=== PATIENT | male | born 2000 | race Caucasian/White ===

== ENCOUNTER 2022-04-07 19:22 | Emergency (ER) | payer BC, SELFPAY ==
--- NOTE | ~2022-04-07 | XR_ITS ---
EXAMINATION: XR chest 2V Exam Date/Time: 04/07/2022 20:30 MANUFACTURING BUSINESS ANALYST HISTORY: Chest pressure, SOB Comparison: None available. RESULT: Lines, tubes, and devices: None. Lungs and pleura: Clear. Cardiomediastinal silhouette: Normal. Other: No acute osseous or upper abdominal finding. IMPRESSION: No acute cardiopulmonary process. Reviewed, dictated and finalized at location K. FACTURING BUSINESS ANALYST
--- NOTE | ~2022-04-07 | CT_ITS ---
EXAMINATION: CTA chest PE protocol DATE: 04/08/2022 07:11 INDICATION: Chest pain and tachycardia TECHNIQUE: Computed tomography (CT) pulmonary angiogram of the chest was performed with 100 mL Omnipa que-350 intravenous contrast. Additional 3D reconstructions utilizing coronal maximum intensity proje ction (MIP) were performed. Automated exposure control and iterative reconstruction technique were em ployed. The dose-length product was 354.61 mGy-cm. COMPARISON: None FINDINGS: Excellent contrast opacification of the pulmonary arteries. There is mild streak artifact from dense contrast in the superior vena cava and right atrium. No significant motion artifact yielding diagnost ic quality study which demonstrates no pulmonary embolism. No pneumonia, pulmonary edema or pleural e ffusion. Heart size is normal. No pericardial effusion. Thoracic aorta is normal in caliber with no d issection. No pathologically enlarged thoracic lymphadenopathy. Diffuse hepatic steatosis. Mild to mo derate thoracic spondylosis with chronic appearing mild anterior wedging at T5-T8. IMPRESSION: 1. No pulmonary embolism or other acute cardiopulmonary disease. 2. Diffuse hepatic steatosis. Reviewed, dictated and finalized at location A. MATERIALS HANDLING PLANT OPERATOR
[2022-04-07 20:03] VITALS: BP 136/86; PULSE 94; RESP 14; TEMP 36.8; O2SAT 98
--- NOTE | 2022-04-07 20:08 | ECG_ITS ---
Measurements Intervals [place] Rate: 84 P: 41 ID: 140 QRS: 21 QRSD: 106 T: -76 QT: 351 QTc: 416 Interpretive Statements SINUS RHYTHM WITH MARKED SINUS ARRHYTHMIA T-WAVE ABNORMALITY INFERIOR AND INFEROLATERAL LEADS, CONSIDER ISCHEMIA ABNORMAL ECG NO PREVIOUS ECG AVAILABLE FOR COMPARISON Electronically Signed On 04-08-2022 15:44:41 [employer] [employer] by Walter Forte M.D.
[2022-04-07 20:27] LABS: Basophils Percent Auto 0.4 % (0.2-1.2); Eosinophils Percent Auto 0.7 % (0-4.4); Hematocrit 47.1 % (42.0-52.0); Hemoglobin 15.8 g/dL (14.0-18.0); Immature Granulocyte Absolute 0.02 K/mm3 (0.00-0.031); Immature Granulocyte Percent A 0.4 % (0-0.5); Lymphocytes Absolute Auto 1.66 K/mm3 (0.9-3.2); Lymphocytes Percent Auto 29.7 % (18.3-44.2); Mean Corpuscular HGB Conc 33.5 g/dl (32-36); Mean Corpuscular Hemoglobin 27.9 pg (26-34); Mean Corpuscular Volume 83.1 fl (80-100); Mean Platelet Volume 10.2 fl (7.4-10.4); Monocytes Absolute Auto 0.5 K/mm3 (0.1-0.6); Monocytes Percent Auto 9.1 % (2.6-8.5); Neutrophils Absolute Auto 3.3 K/mm3 (1.3-6.7); Neutrophils Percent Auto 59.7 % (45.5-73.1); Platelet Count Result 298 k/mm3 (150-375); Red Blood Count 5.67 M/mm3 (4.6-6.20); Red Cell Distribution Width 12.4 % (11.5-14.5); White Blood Count 5.6 K/mm3 (4.5-10.0)
[2022-04-07 20:37] LABS: Alanine Aminotransferase 91 U/L (6-50); Albumin Level 4.9 g/dL (3.5-5.1); Alkaline Phosphatase 74 U/L (38-126); Anion Gap 10 mmol/L (8-16); Aspartate Amino Transferase 50 U/L (17-59); Bilirubin,Total 1.7 mg/dL (0.2-1.3); Blood Urea Nitrogen 5 mg/dL (9-20); Calcium 9.3 mg/dL (8.4-10.2); Carbon Dioxide 28 mmol/L (22-30); Chloride 104 mmol/L (98-107); Estimated CRCL calculation 138 ml/min; Estimated Glomerular Filt Rate > 60; Glucose 94 mg/dL (65-110); Lipase 59 U/L (23-300); Potassium 3.8 mmol/L (3.4-5.0); Sodium 142 mmol/L (137-145)
[2022-04-07 20:38] LABS: Partial Thromboplastin Time 30.4 SECONDS (22.3-36.8); Prothrombin Time 12.4 Seconds (11.1-14.7)
[2022-04-07 20:48] LABS: Troponin I < 0.012 ng/mL (0.000-0.034)
[2022-04-07 21:59] VITALS: BP 141/93; PULSE 85; RESP 18; O2SAT 99
[2022-04-08 00:33] LABS: Troponin I < 0.012 ng/mL (0.000-0.034)
--- NOTE | 2022-04-08 05:37 | ECG_ITS ---
Measurements Intervals [place] Rate: 97 P: 15 DE: 140 QRS: 6 QRSD: 87 T: 228 QT: 346 QTc: 441 Interpretive Statements SINUS RHYTHM BASELINE ARTIFACT MODERATE T-WAVE ABNORMALITY, CONSIDER ANTEROLATERAL ISCHEMIA MODERATE T-WAVE ABNORMALITY, CONSIDER INFERIOR ISCHEMIA ABNORMAL ECG COMPARED TO ECG 04/07/2022 20:13:35 NO SIGNIFICANT CHANGES Electronically Signed On 04-08-2022 15:48:34 ZOO DIRECTOR by Walter Forte M.D.
--- NOTE | 2022-04-08 07:56 | ED.CHESTPAIN ---
HPI - Chest Pain General Chief Complaint: Chest Pain <Jac Mora MD - Last Filed: 04/08/22 08:08> Stated Complaint: chest discomfort <Jac Mora MD - Last Filed: 04/08/22 08:08> Time Seen by Provider: 04/08/22 05:00 <Jac Mora MD - Last Filed: 04/08/22 08:08> History of Present Illness HPI narrative: 21-year-old male present emergency department for evaluation of intermittent left-sided chest wall pain. Patient states he did have molar extraction on Saturday. Patient states that he has been having intermittent left-sided chest wall pain and does have exertional shortness of breath when having the pain. Patient denies any prior cardiac history. Patient denies a personal history of PE although he does have a family history of PE. Patient states that the pain was worsened when laying flat. During examination patient was pain-free and had no pain when lying flat. At this time patient denied any chest pain or shortness of breath. Patient denies any lower extremity swelling or tenderness. Patient denies any other significant past medical history. <Jac Mora MD - Last Filed: 04/08/22 08:08> Related Data Home Medications: Home Medications Medication Instructions Recorded Confirmed cetirizine 10 mg capsule (Zyrtec) 10 mg PO DAILY PRN 02/24/21 09/08/21 <Jac Mora MD - Last Filed: 04/08/22 08:08> Allergies/Adverse Reactions: Allergies Allergy/AdvReac Type Severity Reaction Status Date / Time lactose Allergy Unknown Unknown Verified 03/16/22 10:45 <Jac Mora MD - Last Filed: 04/08/22 08:08> Review of Systems Review of Systems: CONSTITUTIONAL: Denies fever, chills, or sweats. EYES: Denies visual changes, redness, or discharge. ENT: Denies rhinorrhea, congestion, sore throat, or otalgia. CARDIOVASCULAR: See HPI RESPIRATORY: See HPI GASTROINTESTINAL: Denies abdominal pain, nausea, vomiting, or diarrhea. GENITOURINARY: Denies dysuria or hematuria. SKIN: Denies rash or itching. MUSCULOSKELETAL: Denies back pain, joint pain, or myalgia. NEUROLOGIC: Denies headache, numbness, or weakness. <Jac Mora MD - Last Filed: 04/08/22 08:08> [facility] Past Medical History Medical History: Medical History COVID-19 Depression with anxiety Irritable bowel syndrome (01/13/19) <Jac Mora MD - Last Filed: 04/08/22 08:08> Family History Family History: Family History Father Hypertension <Jac Mora MD - Last Filed: 04/08/22 08:08> Social History Social History: Social History Smoking status: Never smoker Second hand tobacco smoke exposure: No Alcohol intake: never Substance use: never Substance use type: does not use <Jac Mora MD - Last Filed: 04/08/22 08:08> Exam Narrative: APPEARANCE: Well appearing, no pain, no distress, well-nourished. HEAD: normocephalic, atraumatic. EYES: PERRLA/EOMI, conjunctivae clear. NOSE: Normal no drainage EARS:TMS clear with good light reflex. THROAT: Pharynx clear, no exudate. NECK: Supple. No adenopathy, no masses. RESPIRATORY: Airway patent, respirations nonlabored. Clear to auscultation bilaterally, no rales, rhonchi, wheezing. CARDIOVASCULAR: Regular rate and rhythm without murmurs rubs or gallops. ABDOMINAL: Soft, nontender, nondistended, normal bowel sounds MUSCULOSKELETAL: Moves all extremities. Strength/ROM intact, No edema, No calf tenderness. NEURO: Alert. Cranial nerves II through XII intact. Grossly intact SKIN: Warm, dry. Normal Color <Jac Mora MD - Last Filed: 04/08/22 08:08> Course Course Emergency Course: Patient's EKG had nonspecific ST change but no evidence of acute STEMI. Patient is pain-free at time of examination and has no reproducible chest pain. Pat
[2022-04-08 08:40] VITALS: BP 132/68; PULSE 72; RESP 18; O2SAT 99
[2022-04-08] MEDS: KETOROLAC 30 MG/ML VIAL (*BKC) IV PUSH (09:36)
== END 2022-04-08 10:28 | disposition home or self-care (01) ==
PROVIDERS: Emergency Medicine; Emergency Provider Emergency Medicine; PCP Internal Medicine
DX: R07.89 Other chest pain (principal); K58.9 Irritable bowel syndrome, unspecified; Z86.16 Personal history of COVID-19; R94.31 Abnormal electrocardiogram [ECG] [EKG]; K76.0 Fatty (change of) liver, not elsewhere classified
CPT/HCPCS: 36415; 71046; 71275; 80053; 83690; 84484; 85025; 85610; 85730; 93005; 96374; 99284; J1885; Q9967

== ENCOUNTER 2022-04-25 08:29 | Outpatient (CLI) | payer BC, SELFPAY ==
--- NOTE | 2022-04-25 08:31 | ECHO_ITS ---
Patient Info Name: Romero Madrigal Age: 21 years : 2000 Gender: Male Ht: 71 in Wt: 196 lbs BSA: 2.13 m2 HR: 85 bpm BP: 141 / 94 mmHg Technical Quality: Good Exam Date: 04/25/2022 8:58 AM Exam Location: [facility] Patient Status: Outpatient Admit Date: 04/25/2022 Staff Ordering Physician: Earl, Hua Ribera DO Supervisor Grips: Tod Chan, LIANNA, RT Attending Provider: José Luis Stoll MD Referring Physician: Earl HUERTA; Exam Type: CA echo doppler color flow Study Info Indications R07.9 - Chest pain, unspecified Complete two-dimensional, color flow and Doppler transthoracic echocardiogram is performed. Strain analysis performed. Summary 1. Complete two-dimensional, color flow and Doppler transthoracic echocardiogram is performed. 2. Left ventricular chamber dimension is normal. 3. Left ventricular systolic function is normal, estimated at 60-65%. 4. The left ventricular diastolic function is normal. 5. E/e' 5 is not elevated. 6. Global longitudinal strain is normal at -19.1%. Left Ventricle E/e' 5 is not elevated. Global longitudinal strain is normal at -19.1%. Left ventricular chamber dimension is normal. Left ventricular systolic function is normal, estimated at 60-65%. The left ventricular diastolic function is normal. Right Ventricle Right ventricular systolic function is normal and with normal TAPSE 2.2 cm. Right ventricular chamber dimension is normal. Left Atria Left atrial chamber dimension is normal. Right Atria Right atrial chamber dimension is normal. Aortic Valve The aortic valve is trileaflet. There is no aortic valve stenosis. There is no aortic valve regurgitation. Pulmonic Valve There is no pulmonic regurgitation. Mitral Valve There is no mitral valve stenosis. There is no mitral valve regurgitation. Tricuspid Valve There is no tricuspid valve regurgitation. Pericardium/Pleural There is no pericardial effusion. Inferior Vena Cava Normal inferior vena cava with >50% collapse upon inspiration consistent with normal right atrial pressure, 5 mmHg. Aorta The aortic root size at the sinus of Valsalva is normal. Left Ventricular Outflow Tract Name Value Normal LVOT 2D LVOT Diameter 2.2 cm LVOT Doppler LVOT Peak Gradient 3 mmHg LVOT Mean Gradient 1 mmHg LVOT VTI 15 cm LVOT VTI/AV VTI Ratio 0.9 LVOT Stroke Volume 55 ml LVOT CO 4.7 l/min LVOT CI 2.2 l/min/m2 Mitral Valve Name Value Normal MV Doppler MV Decel [place] 318 cm/s2 MV PHT 66 ms MV Area (PHT) 3.3 cm2 4.0-5.0
== END 2022-04-25 08:30 | disposition home or self-care (01) ==
PROVIDERS: PCP Internal Medicine; Visit Provider Internal Medicine
DX: R07.9 Chest pain, unspecified (principal)
CPT/HCPCS: 93306